=== PATIENT | male | born 1975 | race Two or more races ===

== ENCOUNTER 2018-01-20 07:20 | Emergency (ER) | payer MEDICAID ==
[~2018-01-20] VITALS: Ht 162.6 cm; Wt 71.7 kg
[2018-01-20 07:40] VITALS: BP 129/77
[2018-01-20] MEDS ORDERED: EPINEPHrine HCL 1 MG/1 ML AMP SC ONE (09:15)
[2018-01-20] MEDS ORDERED: diphenhdrAMINE HCL 50 MG/1 ML VL IM ONE (09:15)
== END 2018-01-20 09:50 | disposition home or self-care (01) ==
LOC: ER 07:20
DX: R21 Rash and other nonspecific skin eruption (principal); T78.49XA Other allergy, initial encounter; X58.XXXA Exposure to other specified factors, initial encounter
CPT/HCPCS: 96372; 99284; J0171; J1200

== ENCOUNTER 2018-08-27 18:49 | Emergency (ER) | payer MEDICAID ==
[~2018-08-27] VITALS: Ht 165.1 cm; Wt 74.8 kg
[2018-08-27] MEDS ORDERED: TETANUS-DIPTH-ACEL PERTUSSIS 0.5ML SYRG IM ONE (20:30)
[2018-08-27] MEDS ORDERED: MORPHINE SULFATE 4 MG/ML SYR/VIAL IV ONE (21:30)
[2018-08-27] MEDS ORDERED: ONDANSETRON HCL 4 MG/2 ML VIAL IV ONE (21:30)
[2018-08-27 23:22] VITALS: BP 139/87
[2018-08-27] MEDS ORDERED: LIDOCAINE W/ EPINEPHRINE 1% 20ML VIAL ID ONE (23:45)
[2018-08-27] MEDS ORDERED: LIDOCAINE W/ EPINEPHRINE 1% 20ML VIAL ONE (23:47)
[2018-08-28] MEDS ORDERED: cefTRIAXone 1GM/50ML D5W 50 ML IV ONE
[2018-08-28] MEDS ORDERED: NEOMYCIN-BACITRACIN-POLYM 15GM TOP OINT TOP ONE (00:33)
[2018-08-28] MEDS ORDERED: HYDROcodone-ACET 10/325MG TAB PO ONE (01:00)
== END 2018-08-28 01:24 | disposition home or self-care (01) ==
LOC: EDBD 18:49 → ER 18:52
DX: S02.2XXA Fracture of nasal bones, initial encounter for closed fracture (principal); S02.81XA Fracture of other specified skull and facial bones, right side, initial encounter for closed fracture; S02.40CA Maxillary fracture, right side, initial encounter for closed fracture; S01.01XA Laceration without foreign body of scalp, initial encounter; Y08.89XA Assault by other specified means, initial encounter; Y93.89 Activity, other specified; Y99.8 Other external cause status; Y92.89 Other specified places as the place of occurrence of the external cause
CPT/HCPCS: 12001; 70450; 70486; 71045; 72125; 73030; 90471; 90715; 94761; 96365; 96374; 96375; 99284; J0696; J2270; J2405

== ENCOUNTER 2018-09-03 09:07 | Emergency (ER) | payer MEDICAID ==
[~2018-09-03] VITALS: Ht 162.6 cm; Wt 76.2 kg
[2018-09-03 10:30] VITALS: BP 112/68
[2018-09-03] MEDS ORDERED: BACITRACIN-POLYMYXIN B TOPICAL OINT UD TOP ONE (11:00)
== END 2018-09-03 11:08 | disposition home or self-care (01) ==
LOC: ER 09:07
DX: S01.91XD Laceration without foreign body of unspecified part of head, subsequent encounter (principal); X58.XXXD Exposure to other specified factors, subsequent encounter

== ENCOUNTER 2020-03-10 09:56 | Inpatient (IN) | payer MEDICAID ==
[~2020-03-10] VITALS: Ht 160 cm; Wt 74.5 kg
[2020-03-10] MEDS ORDERED: SODIUM CHLORIDE 0.9% 1,000 ML IV ONE ×2 (10:15)
[2020-03-10 10:33] LABS: Urine Bacteria NONE SEEN /hpf (None Seen); Urine Blood Negative /uL (Negative); Urine Mucus FEW (None Seen); Urine Specific Gravity 1.028 (1.001-1.035); Urine WBC 2 /hpf (0 - 3)
[2020-03-10 10:53] LABS: Basophils # (auto) 0.1 10 ^3/uL (0-0.2); Basophils % (auto) 0.8 % (0.0-2.0); Eosinophils # (auto) 0.1 10 ^3/uL (0-0.8); Eosinophils % (auto) 0.6 % (0.0-7.0); Hemoglobin 14.2 g/dL (13.5-17.5); Lymphocytes # (auto) 1.4 10 ^3/uL (0.4-5.4); Mean Corpuscular Hemoglobin 29.7 pg (28.0-32.0); Mean Corpuscular Hgb Conc. 33.7 g/dL (32.0-36.0); Monocytes # (auto) 0.9 10 ^3/uL (0-1.3); Neutrophils # (auto) 11.1 10 ^3/uL (1.6-8.6); Neutrophils % (auto) 81.6 % (37.0-80.0); Nucleated Red Blood Cells % 0.1 %; Platelet Count (auto) 371 10^3/uL (140-450); Red Blood Cells 4.77 10^6/uL (4.5-5.90); Red Cell Distribution Width 13.8 % (11.8-14.3); White Blood Cell 13.5 10^3/uL (4.4-10.8)
[2020-03-10 11:08] LABS: Albumin 3.4 g/dL (3.4-5.0); Anion Gap 6 (5-15); Blood Urea Nitrogen 14 mg/dL (7-18); Calcium 8.7 mg/dL (8.5-10.1); Carbon Dioxide 26 mmol/L (21-32); Chloride 102 mmol/L (98-107); Glucose 101 mg/dL (74-106); Potassium 3.4 mmol/L (3.5-5.1); Sodium 134 mmol/L (136-145)
[2020-03-10 11:09] LABS: INR 1.05 (0.9-1.15); Partial Thromboplastin Time 26.8 sec (23.0-31.2)
[2020-03-10 11:15] LABS: Alanine Aminotransferase 18 U/L (16-61); Alkaline Phosphatase 63 U/L (45-117); Aspartate Aminotransferase 10 U/L (15-37); BUN/Creatinine Ratio 13.1; Bilirubin, Total 0.5 mg/dL (0.2-1.0); GFR African American 96 mL/min; GFR Non-African American 79 mL/min; Total Protein 7.4 g/dL (6.4-8.2)
[2020-03-10] MEDS ORDERED: PIPERACILLIN-TAZOB 3.375GM 100 ML IV ONE (11:30)
[2020-03-10] MEDS ORDERED: MORPHINE SULF INJ 2 MG/ML SYRINGE 1ML IV PRN ×2 (12:00)
[2020-03-10] MEDS ORDERED: POTASSIUM CHL 20MEQ/100ML 100 ML IV ONE (12:00)
[2020-03-10] MEDS ORDERED: ONDANSETRON HCL 4 MG/2 ML VIAL IV PRN ×2 (12:00→16:00)
[2020-03-10] MEDS ORDERED: NITROGLYCERIN 0.4 MG SL TAB SL PRN (12:00)
[2020-03-10] MEDS ORDERED: METF500S PO (12:41)
[2020-03-10] MEDS ORDERED: GEMF600T7 PO (12:41)
[2020-03-10] MEDS ORDERED: METF-370 PO (12:42)
[2020-03-10] MEDS ORDERED: POVIDONE IODINE 10 % TOPICAL OINT 30GM TOP ONE (13:00)
[2020-03-10] MEDS ORDERED: SUCCINYLCHOLINE CHLORIDE 20 MG/ML 10ML VIAL IV ONE (14:34)
[2020-03-10] MEDS ORDERED: LIDOCAINE 1% (LOCAL ANESTH.) PF 5ml SDV ONE (14:34)
[2020-03-10] MEDS ORDERED: ACCU-CHEK COMFORT CURVE STRIP VI ONE (16:00)
[2020-03-10] MEDS ORDERED: HYDROmorphone HCL 2 MG/ML VL IV PRN ×2 (16:00)
[2020-03-10] MEDS ORDERED: NALOXONE HCL 0.4 MG/ML VIAL IV PRN (16:00)
[2020-03-10] MEDS: SODIUM CHLORIDE 0.9% 1,000 ML IV SCH (16:56)
[2020-03-10 17:00] VITALS: BP 100/62
--- NOTE | 2020-03-10 17:37 | NUR ---
Telemetry admit from ER WHEELERANIKA PEREIRA admitted to Telemetry unit after SBAR received. Patient oriented to GHANSHYAM WALLER, primary RN, unit, room, bed, and unit policies regarding patient care and visiting hours. Patient now on continuous telemetry monitoring, tele box # [id number] and telemetry reading on arrival to unit is . Patient placed on bedside oxygen, weighed by bed scale and encouraged to call if they need something. All questions and concerns addressed, patient verbalized understanding.
[2020-03-10 17:39] VITALS: BP 100/60
--- NOTE | 2020-03-10 19:20 | NUR ---
Opening Shift Note Assumed care of patient. Pt is awake and alert, oriented x 4. No S/S of respiratory distress noted. Patient denies pain at this time. Dressings are dry and intact. Bed in lowest locked position, side rails x 2 up, call light is within reach. Instructed on POC and to call for assistance as needed. Will continue to monitor for changes Q1hr and PRN.
[2020-03-10 20:00] VITALS: BP 100/68
[2020-03-10 22:00] VITALS: BP 100/68
[2020-03-11] MEDS: SODIUM CHLORIDE 0.9% 1,000 ML IV SCH ×4 (03:16→23:00)
[2020-03-11 05:00] VITALS: BP 116/70
[2020-03-11 06:54] LABS: Basophils # (auto) 0 10 ^3/uL (0-0.2); Basophils % (auto) 0.3 % (0.0-2.0); Eosinophils # (auto) 0.1 10 ^3/uL (0-0.8); Eosinophils % (auto) 0.7 % (0.0-7.0); Hematocrit 38.6 % (41.0-53.0); Hemoglobin 13.2 g/dL (13.5-17.5); Lymphocytes # (auto) 1.6 10 ^3/uL (0.4-5.4); Lymphocytes % (auto) 14.9 % (10.0-50.0); Mean Corpuscular Hemoglobin 30.3 pg (28.0-32.0); Mean Corpuscular Hgb Conc. 34.1 g/dL (32.0-36.0); Mean Corpuscular Volume 88.8 fL (80.0-100.0); Monocytes # (auto) 0.9 10 ^3/uL (0-1.3); Monocytes % (auto) 8.2 % (0.0-12.0); Neutrophils % (auto) 75.9 % (37.0-80.0); Platelet Count (auto) 357 10^3/uL (140-450); Red Blood Cells 4.35 10^6/uL (4.5-5.90); Red Cell Distribution Width 13.9 % (11.8-14.3); White Blood Cell 10.6 10^3/uL (4.4-10.8)
[2020-03-11 07:17] LABS: BUN/Creatinine Ratio 15.1
[2020-03-11 08:00] VITALS: BP 113/71
[2020-03-11 12:00] VITALS: BP 124/75
[2020-03-11] MEDS ORDERED: traMADol HCL 50 MG TAB PO PRN (13:00)
[2020-03-11] MEDS ORDERED: DEXTROSE (50%) 50ML SYRG IV PRN (13:00)
--- NOTE | 2020-03-11 13:40 | NUR ---
Patient downgrade to PA, Tele box sent to ICU.
--- NOTE | 2020-03-11 13:41 | NUR ---
IS at bedside, teaching explained, patient return demonstrated and verbalized understanding.
[2020-03-11 16:00] VITALS: BP 133/71
[2020-03-11] MEDS: InsuLIN REG 1unit/0.01ml Soln (100units/ml) SC SCH ×2 (17:00→22:00)
[2020-03-11] MEDS: ACCU-CHEK COMFORT CURVE STRIP VI SCH ×2 (17:06→22:27)
--- NOTE | 2020-03-11 19:10 | NUR ---
OPENING SHIFT NOTE: Assumed care of patient. Patient awake, alert and oriented x 4, no s/s of SOB or distress, patient denies pain. Bed in lowest locked position with two side rails raised and call hendrickson within reach. Instructed on poc and encouraged to call for assistance, all questions and concerns addressed, patient verbalizes understanding. Will continue to monitor Q1 hr and PRN.
[2020-03-11 20:00] VITALS: BP 127/77
[2020-03-11 22:00] VITALS: BP 127/77
[2020-03-12 05:00] VITALS: BP 121/70
[2020-03-12 05:50] LABS: Basophils # (auto) 0.1 10 ^3/uL (0-0.2); Basophils % (auto) 0.9 % (0.0-2.0); Eosinophils # (auto) 0.3 10 ^3/uL (0-0.8); Eosinophils % (auto) 5.6 % (0.0-7.0); Hematocrit 37.3 % (41.0-53.0); Hemoglobin 12.7 g/dL (13.5-17.5); Lymphocytes # (auto) 1.6 10 ^3/uL (0.4-5.4); Lymphocytes % (auto) 26.6 % (10.0-50.0); Mean Corpuscular Hemoglobin 29.9 pg (28.0-32.0); Mean Corpuscular Hgb Conc. 33.9 g/dL (32.0-36.0); Mean Corpuscular Volume 88.1 fL (80.0-100.0); Monocytes # (auto) 0.5 10 ^3/uL (0-1.3); Neutrophils # (auto) 3.4 10 ^3/uL (1.6-8.6); Neutrophils % (auto) 57.9 % (37.0-80.0); Nucleated Red Blood Cells % 0.1 %; Platelet Count (auto) 351 10^3/uL (140-450); Red Blood Cells 4.24 10^6/uL (4.5-5.90); Red Cell Distribution Width 13.4 % (11.8-14.3); White Blood Cell 5.9 10^3/uL (4.4-10.8)
[2020-03-12 06:19] LABS: Calcium 8.3 mg/dL (8.5-10.1); Potassium 3.8 mmol/L (3.5-5.1)
[2020-03-12 06:23] LABS: BUN/Creatinine Ratio 10.1
[2020-03-12] MEDS: ACCU-CHEK COMFORT CURVE STRIP VI SCH ×3 (07:00→17:00)
[2020-03-12] MEDS: InsuLIN REG 1unit/0.01ml Soln (100units/ml) SC SCH ×3 (07:00→17:00)
[2020-03-12 08:00] VITALS: BP 128/72
[2020-03-12 08:46] VITALS: BP 128/72
[2020-03-12] MEDS: SODIUM CHLORIDE 0.9% 1,000 ML IV SCH (09:51)
--- NOTE | 2020-03-12 10:37 | NUR ---
DR. CLEARY AT BEDSIDE ASSESSING PT, NEW ORDER TO ADVANCE DIET. Signed: 03/12/20 at 1039 by Smith Dozier RN RN
[2020-03-12 12:42] VITALS: BP 128/72
[2020-03-12 13:00] VITALS: BP 134/73
[2020-03-12 16:25] VITALS: BP 127/78
--- NOTE | 2020-03-12 17:46 | NUR ---
DISCHARGE HOME, INSTRUCTED PT TO FOLLOW UP WITH DR. CLEARY IN 1 WEEK, NEW PRESCRIPTION GIVEN TO PT, IV REMOVED WITH CATHETER INTACT, PRESSURE DRESSING APPLIED. PT LEFT UNIT VIA W/C, ACCOMPANIED BY STAFF. NO ACUTE DISTRESS NOTED AT DEPARTURE.
== END 2020-03-12 17:00 | disposition home or self-care (01) | DRG 710 ==
LOC: ER 09:56 → TELE 09:57 → TELE-WESTW 16:52
PROVIDERS: ADMIT Nurse Practitioner Acute Care; ATTEND Internal Medicine
PROC: 3E013GC Introduction of Other Therapeutic Substance into Subcutaneous Tissue, Percutaneous Approach (ICD-10-PCS; 2020-03-10)
PROC: 0DTJ4ZZ Resection of Appendix, Percutaneous Endoscopic Approach (ICD-10-PCS; principal; 2020-03-10 14:49)
DX: A41.9 Sepsis, unspecified organism (principal); K35.80 Unspecified acute appendicitis; E11.9 Type 2 diabetes mellitus without complications; I10 Essential (primary) hypertension; E87.6 Hypokalemia; E78.5 Hyperlipidemia, unspecified; J42 Unspecified chronic bronchitis; Z20.828 Contact with and (suspected) exposure to other viral communicable diseases; Z79.84 Long term (current) use of oral hypoglycemic drugs
CPT/HCPCS: 36415; 71046; 74176; 80048; 80053; 81001; 82962; 83036; 84484; 85025; 85610; 85730; 86850; 86900; 86901; 87426; 96365; 96366; G0378; J0330; J2250; J2543; J2704; J3480

== ENCOUNTER 2023-04-04 16:51 | Emergency (ER) | payer MEDICAID ==
[~2023-04-04] VITALS: Ht 165.1 cm; Wt 63.6 kg
[~2023-04-04 16:51] MED LIST: GEMF-66 PO; METF-370 PO
[2023-04-04] MEDS ORDERED: ONDANSETRON ODT 4 MG TAB PO ONE (19:45)
[2023-04-04] MEDS ORDERED: MORPHINE SULFATE INJ 2 MG/ml SYRG IM ONE (19:45)
[2023-04-04 20:19] VITALS: TEMP 98
[2023-04-04 20:49] VITALS: BP 122/85; PULSE 92; RESP 18; O2SAT 99
[2023-04-04] MEDS ORDERED: CYCL-614 PO (21:25)
[2023-04-04] MEDS ORDERED: ACE3T PO (21:25)
== END 2023-04-04 22:14 | disposition home or self-care (01) ==
LOC: EDBD 16:51 → ER 16:51
DX: S16.1XXA Strain of muscle, fascia and tendon at neck level, initial encounter (principal); S09.8XXA Other specified injuries of head, initial encounter; I10 Essential (primary) hypertension; E11.9 Type 2 diabetes mellitus without complications; Z79.84 Long term (current) use of oral hypoglycemic drugs; Z79.899 Other long term (current) drug therapy; V53.5XXA Driver of pick-up truck or van injured in collision with car, pick-up truck or van in traffic accident, initial encounter; Y93.I9 Activity, other involving external motion; Y92.89 Other specified places as the place of occurrence of the external cause; Y99.8 Other external cause status
CPT/HCPCS: 70450; 72125; 96372; 99285; J2270; Q0162